=== PATIENT | male | born 1945 | race Caucasian/White ===

== ENCOUNTER 2017-11-23 20:57 | Outpatient (REF) | payer MEDICARE, SELFPAY ==
[2017-11-23 22:16] LABS: ALT 50 U/L (12-78); AST 25 U/L (15-37); Alkaline Phosphatase 63 U/L (46-116); Anion Gap 10.3 mmol/L (3-11); BUN 11 mg/dL (7-18); Bilirubin, Total 0.7 mg/dL (0.2-1.0); CO2 27.7 mmol/L (21.0-32.0); CREATININE 1.02 mg/dL (0.70-1.30); Calcium 8.7 mg/dL (8.5-10.1); Chloride 103 mmol/L (98-107); Cholesterol 164 mg/dL (50-200); Glucose 127 mg/dL (70-100); HDL Cholesterol 32 mg/dL (40-60); LDL CHOLESTEROL 117 mg/dL (<100); Potassium 4.1 mmol/L (3.5-5.1); Sodium 141 mmol/L (136-145); Triglyceride 105 mg/dL (30-150)
== END 2017-11-23 20:58 ==
LOC: NCHCN 20:57
PROVIDERS: Visit Provider Family Medicine
DX: E11.65 Type 2 diabetes mellitus with hyperglycemia (principal)
CPT/HCPCS: 80053; 80061; 83721

== ENCOUNTER 2018-02-22 21:13 | Outpatient (REF) | payer MEDICARE, SELFPAY ==
[2018-02-23 13:08] LABS: COMMENT (LAB VIEW ONLY) 102.84 mg/dL; Microalb ug/mg Crea 23.3 ug/mg Cr
== END 2018-02-22 21:33 ==
LOC: NCHCN 21:13
PROVIDERS: Visit Provider Family Medicine
DX: E11.9 Type 2 diabetes mellitus without complications (principal)
CPT/HCPCS: 82043; 82570

== ENCOUNTER 2018-11-29 13:38 | Outpatient (REF) | payer MEDICARE, SELFPAY ==
[2018-11-29 21:49] LABS: ALT 58 U/L (16-63); AST 32 U/L (15-37); Alkaline Phosphatase 65 U/L (46-116); Anion Gap 8.7 mmol/L (3-11); BUN 12 mg/dL (7-18); Bilirubin, Total 0.9 mg/dL (0.2-1.0); CO2 28.3 mmol/L (21.0-32.0); CREATININE 0.98 mg/dL (0.70-1.30); Calculated LDL 73 mg/dL; Chloride 103 mmol/L (98-107); Cholesterol 129 mg/dL (50-200); Glucose 158 mg/dL (70-100); HDL Cholesterol 43 mg/dL (40-60); Potassium 4.5 mmol/L (3.5-5.1); Sodium 140 mmol/L (136-145); Total Protein 7.4 g/dL (6.4-8.2); Triglyceride 69 mg/dL (30-150)
== END 2018-11-29 13:58 ==
LOC: NCHCN 13:38
PROVIDERS: PCP Family Medicine; Visit Provider Family Medicine
DX: E11.65 Type 2 diabetes mellitus with hyperglycemia (principal); Z13.6 Encounter for screening for cardiovascular disorders
CPT/HCPCS: 80053; 80061; 83721

== ENCOUNTER 2019-03-20 15:54 | Outpatient (REF) | payer MEDICARE, SELFPAY ==
[2019-03-20 21:55] LABS: COMMENT (LAB VIEW ONLY) 90.25 mg/dL; Microalb ug/mg Crea 54.4 ug/mg Cr
== END 2019-03-20 16:14 ==
LOC: NCHCN 15:54
PROVIDERS: PCP Family Medicine; Visit Provider Nurse Practitioner Community Health
DX: E11.9 Type 2 diabetes mellitus without complications (principal)
CPT/HCPCS: 82043; 82570

== ENCOUNTER 2019-11-30 17:17 | Outpatient (REF) | payer MEDICARE, SELFPAY ==
[2019-11-30 21:14] LABS: ALT 37 U/L (16-63); AST 21 U/L (15-37); Alkaline Phosphatase 64 U/L (46-116); Anion Gap 5.6 mmol/L (3-11); BUN 12 mg/dL (7-18); Bilirubin, Total 1.2 mg/dL (0.2-1.0); CO2 27.4 mmol/L (21.0-32.0); CREATININE 0.97 mg/dL (0.70-1.30); Calcium 8.9 mg/dL (8.5-10.1); Calculated LDL 137 mg/dL (<100); Chloride 105 mmol/L (98-107); Cholesterol 189 mg/dL (<200); Glucose 133 mg/dL (74-106); HDL Cholesterol 33 mg/dL (40-60); Potassium 3.8 mmol/L (3.5-5.1); Sodium 138 mmol/L (136-145); Total Protein 7.2 g/dL (6.4-8.2); Triglyceride 98 mg/dL (<150)
[2019-11-30 21:18] LABS: Microalb ug/mg Crea 28.7 ug/mg Cr
== END 2019-11-30 17:37 ==
LOC: NCHCN 17:17
PROVIDERS: PCP Family Medicine; Visit Provider Family Medicine
DX: E78.6 Lipoprotein deficiency (principal); E11.65 Type 2 diabetes mellitus with hyperglycemia
CPT/HCPCS: 80053; 80061; 82043; 82570

== ENCOUNTER 2021-03-18 14:43 | Outpatient (REF) | payer MEDICARE, SELFPAY ==
[2021-03-18 21:45] LABS: ALT 25 U/L (16-63); AST 11 U/L (15-37); Albumin 3.9 g/dL (3.4-5.0); Alkaline Phosphatase 112 U/L (46-116); Anion Gap 6.2 mmol/L (3-11); BUN 16 mg/dL (7-18); Bilirubin, Total 0.5 mg/dL (0.2-1.0); CO2 30.8 mmol/L (21.0-32.0); CREATININE 1.1 mg/dL (0.70-1.30); Calcium 8.9 mg/dL (8.5-10.1); Calculated LDL 150 mg/dL (<100); Chloride 99 mmol/L (98-107); Cholesterol 206 mg/dL (<200); Glucose 359 mg/dL (74-106); HDL Cholesterol 38 mg/dL (40-60); Potassium 4.3 mmol/L (3.5-5.1); Sodium 136 mmol/L (136-145); Total Protein 7.3 g/dL (6.4-8.2); Triglyceride 91 mg/dL (<150)
[2021-03-18 22:18] LABS: COMMENT (LAB VIEW ONLY) 42.14 mg/dL; Microalb ug/mg Crea 41.8 ug/mg Cr
== END 2021-03-18 14:44 | disposition home or self-care (01) ==
LOC: NCHCN 14:43
PROVIDERS: PCP Family Medicine; Visit Provider Family Medicine
DX: E11.65 Type 2 diabetes mellitus with hyperglycemia (principal); E78.5 Hyperlipidemia, unspecified
CPT/HCPCS: 80053; 80061; 82043; 82570